=== PATIENT | male | born 1945 | race Caucasian/White ===

== ENCOUNTER 2017-09-03 12:41 | Outpatient (CLI) | payer MEDICARE ==
--- NOTE | 2017-09-03 14:36 | RAD ---
CHEST TWO VIEWS: History: Pre op. Comparison: 08-13-14 FINDINGS: Cardiac silhouette and pulmonary vasculature are unremarkable. Mediastinum is midline with aortic stephan cification. There is no confluent airspace consolidation, pneumothorax, or pleural fluid. IMPRESSION: 1. Atherosclerosis. POS: [facility]
[2017-09-03 14:51] LABS: PTT 30.2 SEC (22.9-36.1); Prothrombin Time 13.1 SEC (12.0-14.7)
[2017-09-03 14:55] LABS: Bilirubin Negative (Negative); Blood, Urine Negative (Negative); Clarity CLEAR (Clear); Glucose, Urine (Dipstick) Negative (Negative); Leukocyte Negative (Negative); Nitrite Negative (Negative); Protein, Urine (Dipstick) Negative (Neg-Trace); Specific Gravity, Urine 1.013 (1.002-1.036); Urobilinogen 0.2 mg/dL (0.2-1.0)
[2017-09-03 15:05] LABS: Bacteria/HPF None Seen HPF (None Seen); Hyaline Casts/LPF 0-3 HYALINE CAST LPF (0-3 Hyaline); Squamous Epithelial None Seen HPF (0-3); WBC/HPF None Seen HPF (0-3)
[2017-09-03 15:11] LABS: Anion Gap 14 mmol/L (10-20); BUN (Urea Nitrogen) 11 mg/dL (8.4-25.7); Calc. Creatinine Clearance 0 mL/min (70-130); Calcium 9.9 mg/dL (7.8-10.44); Carbon Dioxide 28 mmol/L (23-31); Chloride 100 mmol/L (98-107); Estimated GFR-MDRD Greater than 90; Glucose 95 mg/dL (80-115); Potassium 4.2 mmol/L (3.5-5.1); Sodium 138 mmol/L (136-145)
[2017-09-03 15:14] LABS: Band 3 % (5-11); Eosinophils 1 % (0-10); Lymphocytes 32 % (21-51); MDiff Complete? YES; Mean Corpuscular Hemoglobin 34.3 pg (27.0-31.0); Mean Platelet Volume 8.3 fL (7.4-10.4); Monocytes 5 % (0-10); Neutrophil 57 % (42-75); PLT Morphology Comment Appears Adequate; Platelet Count 226 thou/uL (130-400); RBC Distribution Width 12.3 % (11.5-14.5); Reactive Lymphocytes 1 % (0-10); Red Blood Cell (RBC) Count 4.37 mill/uL (4.70-6.10); White Blood Cell (WBC) Count 5.6 thou/uL (4.8-10.8)
--- NOTE | 2017-09-27 16:37 | EKG ---
Test Reason : Blood Pressure : / mmHG Vent. Rate : 079 BPM Atrial Rate : 079 BPM P-R Int : 166 ms QRS Dur : 086 ms QT Int : 394 ms P-R-T Axes : 055 -25 053 degrees QTc Int : 451 ms Normal sinus rhythm Low voltage QRS Cannot rule out Anterior infarct (cited on or before 13-AUG-2014) Abnormal ECG When compared with ECG of 13-AUG-2014 15:26, No significant change was found Confirmed by DR. Kvng SOW ([id number]) on 09/27/2017 4:37:12 PM Referred By: SOLA Confirmed By:DR. Kvng SOW
== END 2017-09-03 12:42 | disposition home or self-care (01) ==
LOC: LABBT 12:41
PROVIDERS: ATTEND Orthopaedic Surgery
DX: Z01.818 Encounter for other preprocedural examination (principal); M17.12 Unilateral primary osteoarthritis, left knee
CPT/HCPCS: 71046; 80048; 81001; 85025; 85610; 85730; 86850; 86900; 86901; 87081; 93005; 93010

== ENCOUNTER 2017-09-17 09:42 | Day surgery (SDC) | payer MEDICARE ==
[2017-09-03 12:59] VITALS: BMI 33.7
[2017-09-17] MEDS ORDERED: CEFAZOLIN/Water 2 GM/20 ML SYRINGE ONE (10:07)
[2017-09-17] MEDS ORDERED: Tranexamic Acid 1,000 MG/100 ML BAG ONE ×2 (10:07→13:02)
[2017-09-17] MEDS ORDERED: Fentanyl 100 MCG/2 ML VIAL ONE ×4 (10:08→13:46)
[2017-09-17] MEDS ORDERED: Midazolam HCl 2 mg/2 ml Vial ONE (10:08)
[2017-09-17] MEDS ORDERED: Ropivacaine 0.2% HCl/PF 20 ML ONE (10:08)
[2017-09-17] MEDS ORDERED: Vancomycin HCl 1.5 GM in Sodium Chloride 0.9% 250 ML 300 ML IVPB SCH (10:15)
[2017-09-17] MEDS ORDERED: Acetaminophen 325 MG TAB PO PRN (11:15)
[2017-09-17] MEDS ORDERED: diphenhydrAMINE 25 MG CAP PO PRN (11:15)
[2017-09-17] MEDS ORDERED: HYDROcodone/Acetaminophen 10/325 mg Tablet PO PRN ×3 (11:15→11:17)
[2017-09-17] MEDS ORDERED: traMADol HCl 50 MG TAB PO PRN ×3 (11:15→11:18)
[2017-09-17] MEDS ORDERED: Ondansetron HCl/PF 4 MG/2 ML Vial IVP PRN ×3 (11:15→11:57)
[2017-09-17] MEDS ORDERED: Zolpidem Tartrate 5 MG TAB PO PRN ×2 (11:15→11:17)
[2017-09-17] MEDS ORDERED: Tranexamic Acid 1,000 MG in Sodium Chloride 0.9% 100 ML IVPB SCH (11:15)
[2017-09-17] MEDS ORDERED: Fentanyl 100 MCG/2 ML VIAL SLOW IVP PRN ×2 (11:15)
[2017-09-17] MEDS ORDERED: Promethazine HCl 25 MG/ML VIAL IM PRN ×3 (11:15→11:57)
[2017-09-17] MEDS ORDERED: Ropivacaine 0.2% 550 ML 550 ML NERVE BLCK SCH (11:17)
[2017-09-17] MEDS ORDERED: Fentanyl 100 MCG/2 ML VIAL IV PRN (11:18)
[2017-09-17] MEDS ORDERED: Promethazine HCl 25 MG/ML VIAL SLOW IVP PRN (11:57)
[2017-09-17] MEDS ORDERED: Ropivacaine 0.5% HCl/PF (150 MG/30 ML VIAL) ONE (12:28)
[2017-09-17] MEDS ORDERED: Propofol 200 MG/20 ML VIAL ONE (12:40)
[2017-09-17] MEDS ORDERED: Ondansetron HCl/PF 4 MG/2 ML Vial ONE (12:40)
[2017-09-17] MEDS ORDERED: CEFAZOLIN 1 GM VIAL ONE (12:40)
[2017-09-17] MEDS ORDERED: Sterile Water 10 ML VIAL ONE (12:40)
[2017-09-17] MEDS ORDERED: Ketorolac Tromethamine 30 MG/ML VIAL ONE (12:40)
--- NOTE | 2017-09-17 13:27 | OP ---
PREOPERATIVE DIAGNOSIS: Degenerative joint disease, left knee. POSTOPERATIVE DIAGNOSIS: Degenerative joint disease, left knee. SURGEON: Scot Juárez M.D. ACCOUNTS RECEIVABLE ACCOUNTANT: Balwinder Parr PA-C. BLOOD LOSS: Minimal. SPECIMEN: None. DRAINS: None. COMPLICATIONS: None. TOURNIQUET TIME: 52 minutes. IMPLANTS USED: Elie Triathlon 5 femur, 4 tibia, 11 mm CSX3 polyethylene, and A32 patella. PROCEDURE IN DETAIL: After informed consent was obtained in the preoperative holding area. The fracisco ent was taken to the operative suite where general anesthesia was induced. Once adequate level of ge neral anesthesia was obtained, the patient was positioned and a well-padded tourniquet was placed lavonne und the left proximal thigh. The left lower extremity was then prepped and draped in the usual steri le fashion. Prior to exsanguination, a time out was called and all members of the surgical team agre ed upon site, surgeon, and patient. The extremity was then exsanguinated and the tourniquet was rais ed. A midline longitudinal incision was then made directly over the patella extending two fingerbrea dths above the superior pole of the patella and two fingerbreadths inferior to the inferior patellar pole of the patella. Deeper subcutaneous layers were dissected sharply and local bleeding was contro lled with Bovie electrocautery. A quad tendon longitudinal split was then made sharply and a median parapatellar arthrotomy was carried out both sharp and with Bovie electrocautery, carried down to one fingerbreadth medial to the tibial tubercle. The knee was then placed into flexion and the patella was everted nicely, and a copious fat pad ectomy was performed allowing for greater exposure of the t ibia. The computer-assisted distal femoral fiducial was then placed and pinned firmly, and the dista l femoral cutting guide was pinned firmly into place. The oscillating saw was then used to remove th e appropriate amount of bone. The 4-in-1 cutting block was then placed on the distal femur and the o scillating saw was used to remove the appropriate amount of bone off of the anterior, posterior, and chamfer cuts. After completion of bone cuts, the anterior cruciate ligament was resected sharply and the posterior cruciate ligament retractor was placed and the tibia was subluxed for better exposure. Partial meniscectomies were carried out, and the tibial computer-assisted fiducial was pinned, and the cutting guide was placed. Oscillating saw was then used to remove the bone with Hohmann retracto rs used to take care and protect the collateral ligaments. After the tibial resection was performed, a laminar senior technical project manager was placed in between the freshened bone cuts. The knee placed at 90 degrees and further bilateral meniscectomies were carried out, and the curved osteotome and curettage was used t o remove any excess bone spurs in the posterior compartment. Exparel was then injected into the post erior capsule, swathi-articular synovia, pre-patella synovia, and musculature surrounding the capsule. The trial femoral component, tibial baseplate were placed with the appropriate polyethylene trial in sert with an appropriate polyethylene spacer and patellar button. The knee was taken through full ra nge of motion with flexion and extension from 0-90 degrees and patellar broach squarely in the trochl ea without any squinting or subluxation noted. The knee was also stable to varus and valgus stressin g at 0, 15, 45, and 90 degrees of flexion. The drawer was negative. All trial components were then removed and the keel punch was used to provide the appropriate defect in the tibia with a mallet. Th e freshened bone cuts were copiously irrigated with pulsatile lavage of about 1-1/2 liters to remove all excess debris. The freshened bone cuts were then dried and with suction and lap sponge. The kne e was placed in flexion and retractors were placed to provide access to all bone cuts. Tobramycin im pregnated methyl methacrylate cement was then placed on the freshened bone cuts and implants which we re malleted firmly into place. Curettage and [place] elevators were used to remove any excess bone derek ent. The knee was placed into full extension and the patellar button was placed under compression, a nd the cement was allowed to cure. Once completed, the components were again taken through full rang e of motion and copious irrigation of the knee was carried out with another liter of normal saline. All components were inspected fully with full range of motion and varus and valgus stressing. There w as no laxity noted and full extension was observed clinically. Primary closure was accomplished with #2 interrupted Vicryl stitch of the arthrotomy defect. This was oversewn with a #2 running Quill ba rbed stitch. The gravitational platelet system was then injected into the arthrotomy prior to closur e. The subcutaneous layer was then closed with a running 0 barbed Monocryl stitch and skin closure a ccomplished with a running subcuticular 3-0 Monocryl barbed Quill stitch and augmented with cement on the skin. Tourniquet was lowered. Good spontaneous return of distal pulses was noted clinically an d a sterile dressing was applied to the incision. The procedure was terminated without any complicat ions. The patient was awakened in the operative suite and the tourniquet was removed, and the patien t was taken to the recovery room in stable condition.
[2017-09-17] MEDS ORDERED: Promethazine HCl 25 MG/ML VIAL ONE (13:35)
--- NOTE | 2017-09-17 13:47 | RAD ---
TWO VIEWS LEFT KNEE: Date: 09-17-17 History: Status post total knee arthroplasty. FINDINGS: Tibial and femoral components are present, evidence of recent knee arthroplasty. There is post-operat ricky gas within the suprapatellar bursa. There is posterior patellar post-operative changes. No acute fracture or dislocation. No evidence for hardware failure. IMPRESSION: Findings consistent with recent left total knee arthroplasty. POS: [facility]
[2017-09-17] MEDS: Dextrose 5 %-0.45 % NaCl 1,000 ML IV SCH ×2 (14:59→20:58)
[2017-09-17] MEDS: Ketorolac Tromethamine 30 MG/ML VIAL IVP SCH ×5 (15:00→23:11)
[2017-09-17] MEDS: CEFAZOLIN/Water 2 GM/20 ML SYRINGE SLOW IVP SCH ×2 (15:01→21:10)
[2017-09-17] MEDS: Aspirin 81 mg Enteric Coated Tablet PO SCH (20:57)
[2017-09-17] MEDS: Calcium Carbonate + Vit D 1 TAB PO SCH (20:58)
[2017-09-17] MEDS ORDERED: Allopurinol 300 MG TAB PO SCH (21:00)
[2017-09-17] MEDS ORDERED: Atorvastatin Calcium 10 MG TAB PO SCH (21:00)
[2017-09-17] MEDS ORDERED: Aspirin 325 MG TAB PO SCH (21:00)
[2017-09-17] MEDS: HYDROcodone/Acetaminophen 10/325 mg Tablet PO PRN (21:02)
--- NOTE | 2017-09-18 00:09 | CON ---
DATE OF CONSULTATION: 09/17/2017 ORTHOPEDIST: Scot Juárez M.D. PRIMARY CARE PHYSICIAN: Easton Del Real M.D. REASON FOR CONSULTATION: Medical management of the patient's chronic hypertension, hypothyroidism, B arrett's esophagitis. HISTORY OF PRESENT ILLNESS: This is a 71-year-old male with a known history of gout, gastroesophagea l disease and Jacobs's esophagus, hypertension, hypothyroidism who presented initially to the [facility] for a left total knee arthroplasty. He is currently being seen status post procedure for which he has tolerated well. At the time of my evaluation, the patient himself has no overt complaints. REVIEW OF SYSTEMS: As per HPI, includes the following: General: No fevers, no chills. HEENT: No dizziness, no new headaches, no new vision changes. Cardiovascular: No chest pain, no chest pressur e, no left-sided arm numbness or tingling. No nausea, no diaphoresis. Respiratory: No shortness of breath, no new cough. No recent upper respiratory illness, no sinus congestion, no ear pain. Gastr ointestinal: Denies any new cough. Denies any throat discomfort. Denies any sensation of chest bur mik or reflux disease. Denies any nausea, vomiting, abdominal pain, diarrhea or constipation. Letha tourinary: Denies any dysuria. Denies any change in urine quality or quantity. Musculoskeletal: D enies any new arthralgias or myalgias other than pain that is swathi-surgically related to the left low er extremity at this point in time. The remainder of the review of systems otherwise negative. PAST MEDICAL HISTORY: As per above, significant for gout, gastroesophageal reflux disease, hypertens ion, hypothyroidism, prior diagnosis of Jacobs's esophagus, status post history of hernia repair. FAMILY HISTORY: Significant for cardiovascular disease in his mother. ALLERGIES: No known drug allergies. HOME MEDICATIONS: Please see the EMR for full details. The patient denies any change to his medicat ion regimen in the last month. SOCIAL HISTORY: The patient is , lives with his . Prior smoker, quit approximately 17 ye ars ago. Intermittent alcohol use. PHYSICAL EXAMINATION: VITAL SIGNS: Temperature of 98.2, pulse of 76, respirations 18, satting 96% on room air, blood press ure of 126/90. GENERAL: The patient is awake, alert, appropriate and reasonable historian with a normal affect. HEENT: Moist mucous membranes. Equal ocular motions are intact. Reasonable dentition. Clear oroph arynx. CARDIOVASCULAR: S1, S2. No murmurs, rubs or gallops. Pulses 2+ bilateral upper extremity, no pitti ng pedal edema. RESPIRATORY: Reasonable air movement. Clear to auscultation bilaterally. No wheezes, rales or rhon chi. ABDOMEN: Positive bowel sounds, soft, nontender to palpation. No hepatosplenomegaly noted. LABORATORY DATA AND IMAGING: Currently no postoperative labs are available. ASSESSMENT AND PLAN: A 71-year-old male who is currently status post left total knee arthroplasty. 1. Status post left knee total arthroplasty. Management as per orthopedic surgeon. 2. Hypertension, appears to be stable. Resume home medications. We will recommend following up wit h a BMP in the morning to assure no renal dysfunction prior to reinitiation of Avapro. 3. Hypothyroidism. Continue the patient on his home medications and clinical symptoms of dysthymic disorder. 4. Gastroesophageal reflux disease with a known history of Jacobs's esophagus. Closely monitor p.o . intake and any symptoms of reflux. 5. Gout. Continue the patient on his home regimen. Thank you for asking me to care for the patient and we will follow along consultation.
[2017-09-18] MEDS: Dextrose 5 %-0.45 % NaCl 1,000 ML IV SCH (00:29)
[2017-09-18] MEDS: HYDROcodone/Acetaminophen 10/325 mg Tablet PO PRN ×3 (03:41→13:43)
[2017-09-18 05:48] LABS: Hemoglobin 12.4 g/dL (14.0-18.0); Mean Corpuscular Hemoglobin 33.5 pg (27.0-31.0); Mean Platelet Volume 8.1 fL (7.4-10.4); Platelet Count 303 thou/uL (130-400); RBC Distribution Width 12.3 % (11.5-14.5); Red Blood Cell (RBC) Count 3.71 mill/uL (4.70-6.10); White Blood Cell (WBC) Count 8.5 thou/uL (4.8-10.8)
[2017-09-18 05:57] LABS: Anion Gap 12 mmol/L (10-20); BUN (Urea Nitrogen) 16 mg/dL (8.4-25.7); Calc. Creatinine Clearance 126 mL/min (70-130); Calcium 8.7 mg/dL (7.8-10.44); Carbon Dioxide 25 mmol/L (23-31); Chloride 103 mmol/L (98-107); Estimated GFR-MDRD Greater than 90; Glucose 101 mg/dL (80-115); Potassium 4.1 mmol/L (3.5-5.1); Sodium 136 mmol/L (136-145)
[2017-09-18] MEDS ORDERED: Levothyroxine Sodium 75 MCG TAB PO SCH (06:00)
[2017-09-18] MEDS: Ketorolac Tromethamine 30 MG/ML VIAL IVP SCH ×2 (06:18→13:45)
[2017-09-18] MEDS ORDERED: Ferrous Gluconate 324 MG TAB PO SCH (09:00)
[2017-09-18] MEDS ORDERED: Aspirin 81 mg Enteric Coated Tablet PO SCH (09:00)
[2017-09-18] MEDS ORDERED: Metamucil PACK PO SCH (09:00)
[2017-09-18] MEDS ORDERED: Senokot S 8.6-50 MG TAB PO SCH (09:00)
[2017-09-18] MEDS ORDERED: Multivitamin W/ Minerals 1 TAB PO SCH ×2 (09:00)
[2017-09-18] MEDS: Calcium Carbonate + Vit D 1 TAB PO SCH (09:07)
[2017-09-18] MEDS: Aspirin 81 mg Enteric Coated Tablet PO SCH (09:08)
[2017-09-18 09:10] VITALS: BP 101/64; TEMP 97.5
== END 2017-09-18 16:07 | disposition home or self-care (01) ==
LOC: SDC 09:42 → SURG B 11:15 → SDC 09-18 16:07
PROVIDERS: ATTEND Physician Assistant Surgical
PROC: 0SRD0J9 Replacement of Left Knee Joint with Synthetic Substitute, Cemented, Open Approach (ICD-10-PCS; principal; 2017-09-17)
PROC: 8E0YXBZ Computer Assisted Procedure of Lower Extremity (ICD-10-PCS; 2017-09-17)
DX: M17.0 Bilateral primary osteoarthritis of knee (principal); I10 Essential (primary) hypertension; E03.9 Hypothyroidism, unspecified; K22.70 Barrett's esophagus without dysplasia; M10.9 Gout, unspecified; K21.9 Gastro-esophageal reflux disease without esophagitis; E78.5 Hyperlipidemia, unspecified; Z87.891 Personal history of nicotine dependence; Z79.82 Long term (current) use of aspirin; Z79.52 Long term (current) use of systemic steroids; Z79.899 Other long term (current) drug therapy; Z80.9 Family history of malignant neoplasm, unspecified; Z98.890 Other specified postprocedural states
CPT/HCPCS: 20985; 27447; 73560; 80048; 85027; 86850; 86900; 86901; 97116 ×2; 97139 ×2; 97150; 97530; A4306; C1713; C1776; G8978; G8979; 36415; A4216; J0690; J1885; J2250; J2405; J2550; J2704; J2795; J3010; J3370; J7050

== ENCOUNTER 2018-09-01 06:18 | Outpatient (CLI) | payer MEDICARE ==
[2018-09-01 09:58] LABS: #Basophils 0.1 thou/uL (0.0-0.2); #Eosinphils 0.5 thou/uL (0.0-0.7); #Lymphocytes 1.9 thou/uL (1.20-3.40); #Monocytes 0.8 thou/uL (0.11-0.59); #Neutrophils 4.7 thou/uL (1.40-6.50); %Eosinophils 6.6 % (0.0-10.0); %Lymphocytes 23.9 % (21.0-51.0); %Neutrophils 58.6 % (42.0-75.0); Hemoglobin 14.2 g/dL (14.0-18.0); Platelet Count 275 thou/uL (130-400); RBC Distribution Width 12.2 % (11.5-14.5); Red Blood Cell (RBC) Count 4.17 mill/uL (4.70-6.10); White Blood Cell (WBC) Count 8.1 thou/uL (4.8-10.8)
[2018-09-01 10:09] LABS: INR-International Normal Ratio 1.1; Prothrombin Time 13.8 SEC (12.0-14.7)
[2018-09-01 10:10] LABS: PTT 28.5 SEC (22.9-36.1)
[2018-09-01 10:25] LABS: Anion Gap 13 mmol/L (10-20); BUN (Urea Nitrogen) 14 mg/dL (8.4-25.7); Calc. Creatinine Clearance 0 mL/min (70-130); Calcium 9.5 mg/dL (7.8-10.44); Carbon Dioxide 25 mmol/L (23-31); Chloride 105 mmol/L (98-107); Estimated GFR-MDRD 90; Glucose 103 mg/dL (83-110); Potassium 3.9 mmol/L (3.5-5.1); Sodium 139 mmol/L (136-145)
--- NOTE | 2018-09-01 17:09 | EKG ---
Test Reason : Blood Pressure : / mmHG Vent. Rate : 062 BPM Atrial Rate : 062 BPM P-R Int : 174 ms QRS Dur : 084 ms QT Int : 436 ms P-R-T Axes : 065 005 045 degrees QTc Int : 442 ms Normal sinus rhythm Low voltage QRS Borderline ECG Confirmed by DR. Jennifer FIELDS ([id number]) on 09/01/2018 5:09:15 PM Referred By: SOLA Confirmed By:DR. Jennifer FIELDS
== END 2018-09-01 06:19 | disposition home or self-care (01) ==
LOC: LABBT 06:18
PROVIDERS: ATTEND Orthopaedic Surgery
DX: Z01.818 Encounter for other preprocedural examination (principal); M17.11 Unilateral primary osteoarthritis, right knee
CPT/HCPCS: 80048; 85025; 85610; 85730; 87081; 93005; 93010

== ENCOUNTER 2018-09-09 07:48 | Day surgery (SDC) | payer MEDICARE ==
[2018-09-09] MEDS ORDERED: Vancomycin HCl 1.5 GM in Sodium Chloride 0.9% 250 ML 300 ML IVPB SCH (09:15)
[2018-09-09] MEDS ORDERED: CEFAZOLIN 2 GM/50 ML BAG ONE (09:21)
[2018-09-09] MEDS ORDERED: Tranexamic Acid 1,000 MG/10 ML VIAL ONE ×2 (09:21→12:48)
[2018-09-09] MEDS ORDERED: Sodium Chloride 0.9% 100 ML ONE (09:21)
[2018-09-09] MEDS ORDERED: Fentanyl 100 MCG/2 ML VIAL ONE ×3 (09:43→13:02)
[2018-09-09] MEDS ORDERED: Midazolam HCl 2 mg/2 ml Vial ONE (09:43)
[2018-09-09] MEDS ORDERED: Zolpidem Tartrate 5 MG TAB PO PRN ×2 (10:19→10:51)
[2018-09-09] MEDS ORDERED: Promethazine HCl 25 MG/ML VIAL IM PRN ×3 (10:19→12:39)
[2018-09-09] MEDS ORDERED: Ondansetron PF 4 MG/2 ML Vial IVP PRN ×2 (10:19→10:51)
[2018-09-09] MEDS ORDERED: traMADol HCl 50 MG TAB PO PRN (10:19)
[2018-09-09] MEDS ORDERED: Ropivacaine HCl/PF 250 ML in Premix Bag 1 BAG NERVE BLCK SCH (10:19)
[2018-09-09] MEDS ORDERED: Fentanyl 100 MCG/2 ML VIAL IV PRN (10:20)
[2018-09-09] MEDS ORDERED: Acetaminophen 325 MG TAB PO PRN (10:51)
[2018-09-09] MEDS ORDERED: diphenhydrAMINE 25 MG CAP PO PRN (10:51)
[2018-09-09] MEDS ORDERED: HYDROcodone/Acetaminophen 10/325 mg Tablet PO PRN ×2 (10:51)
[2018-09-09] MEDS ORDERED: CEFAZOLIN/Water 2 GM/20 ML SYRINGE SLOW IVP SCH (11:00)
[2018-09-09] MEDS ORDERED: Ondansetron HCl/PF 4 MG/2 ML Vial IVP PRN (12:39)
[2018-09-09] MEDS ORDERED: Promethazine HCl 25 MG/ML VIAL SLOW IVP PRN (12:39)
[2018-09-09] MEDS ORDERED: HYDROmorphone 2 MG/ML VIAL SLOW IVP PRN (12:39)
[2018-09-09] MEDS ORDERED: PACU-Morphine 4MG/ML VIAL SLOW IVP PRN (12:39)
[2018-09-09] MEDS ORDERED: Ropivacaine 0.5% HCl/PF (150 MG/30 ML VIAL) ONE (13:41)
[2018-09-09] MEDS ORDERED: Bupivacaine 0.25% HCL 30 ML VIAL ONE (13:41)
[2018-09-09] MEDS ORDERED: PROPOFOL 200 MG/20 ML VIAL ONE (14:01)
[2018-09-09] MEDS ORDERED: Ketorolac Tromethamine 30 MG/ML VIAL ONE (14:01)
[2018-09-09] MEDS ORDERED: Ondansetron PF 4 MG/2 ML Vial ONE (14:01)
[2018-09-09] MEDS ORDERED: PHENYLEPHRINE-NS 100 MCG/ML 10 ML SYRINGE ONE (14:01)
[2018-09-09] MEDS ORDERED: Lidocaine 1% PF 5 ML VIAL ONE (14:01)
[2018-09-09] MEDS ORDERED: ePHEDrine/0.9% NaCl/PF SYRINGE 50 mg/10 ml ONE (14:01)
[2018-09-09] MEDS ORDERED: Dexamethasone 20 MG/5 ML VIAL ONE (14:01)
--- NOTE | 2018-09-09 14:58 | RAD ---
RIGHT KNEE TWO VIEWS: INDICATIONS: Total knee replacement. COMPARISON: None. FINDINGS: There is a right total knee prosthesis that projects in the expected position. There is scattered in traarticular and periarticular soft tissue gas, consistent with the patient's recent postop state. N o definite complications evident. IMPRESSION: Right total knee prosthesis. POS: [facility]
[2018-09-09] MEDS: Sodium Chloride 0.9% 1,000 ML IV SCH (16:09)
[2018-09-09] MEDS: Ketorolac Tromethamine 30 MG/ML VIAL IVP SCH ×2 (16:10→18:40)
[2018-09-09 17:03] VITALS: BMI 34.4
[2018-09-09] MEDS: CEFAZOLIN 2 GM/50 ML-DEXTROSE 2 GM in Premix Bag 1 BAG IVPB SCH (18:41)
[2018-09-09] MEDS: traMADol HCl 50 MG TAB PO PRN (21:45)
[2018-09-09] MEDS: Aspirin 81 mg Enteric Coated Tablet PO SCH (21:46)
[2018-09-09] MEDS: Senokot S 8.6-50 MG TAB PO SCH (21:47)
[2018-09-09] MEDS: Allopurinol 300 MG TAB PO SCH (21:48)
[2018-09-09] MEDS: Ferrous Gluconate 324 MG TAB PO SCH (21:48)
[2018-09-09] MEDS: Atorvastatin Calcium 10 MG TAB PO SCH (21:48)
[2018-09-09] MEDS: Calcium Carbonate + Vit D 1 TAB PO SCH (21:49)
--- NOTE | 2018-09-10 00:34 | CON ---
DATE OF CONSULTATION: 09/09/2018 PRIMARY CARE PHYSICIAN: Easton Del Real MD. PRIMARY TEAM ORTHOPEDICS: Scot Juárez MD REASON FOR CONSULTATION: Medical management. HISTORY OF PRESENT ILLNESS: This is a 72-year-old white male with severe osteoarthritis of the right knee, here for elective right total knee arthroplasty. The patient had the procedure earlier today and has been doing well postoperatively without any complaints. PAST MEDICAL HISTORY: 1. Hypertension. 2. Gout. 3. Hyperlipidemia. 4. Hypothyroidism. 5. Remote history of Jacobs's esophagitis. PREVIOUS SURGICAL HISTORY: 1. Right inguinal hernia repair. 2. Left knee total arthroplasty, last year. SOCIAL HISTORY: The patient is , lives with his . They are down here in [place] during the winter months and [place] during the rest of the year. He used to smoke, quit cigarettes 25 years ago. He drinks 6 beers per day. Has never had any problems with withdrawal if he has to stop for few days. FAMILY HISTORY: Brother had testicular cancer as a young man and of throat cancer a few years ago. Dad is still living in his 90s without any significant medical problems. Mother of stroke and had a previous CT. Maternal grandfather had history of CT as well. ALLERGIES: NO KNOWN DRUG ALLERGIES. CURRENT MEDICATIONS: 1. Allopurinol 300 mg at night. 2. Aspirin 81 mg daily. 3. Atorvastatin 10 mg each night. 4. Calcium 600 with vitamin D, 1 tablet twice a day. 5. Avapro 300 mg at night. 6. Levothyroxine 75 mcg daily. 7. Multivitamin daily. 8. Omeprazole 20 mg at night. 9. Metamucil 2 teaspoons daily. 10. Verapamil 240 mg at night. REVIEW OF SYSTEMS: CONSTITUTIONAL: No fevers, no chills. No weight changes. EYES: No double vision or blurred vision. ENT: No congestion, drainage or sore throat. CARDIOVASCULAR: No chest pain. No palpitations or racing heart. PULMONARY: No coughing, wheezing or shortness of breath. GASTROINTESTINAL: No abdominal pain. No nausea or vomiting. No diarrhea or constipation. GENITOURINARY: No dysuria or hematuria. MUSCULOSKELETAL: He had significant pain with ambulation in his right knee. He has some back pain and stiffness each morning that improves after he gets up and moves around. SKIN: He has not noticed any rashes or skin changes. NEUROLOGIC: He has had no numbness, tingling, or focal weakness. PHYSICAL EXAMINATION: VITAL SIGNS: Blood pressure 130/82, pulse 90, respirations 18, temperature 97.6. GENERAL: This is a well-developed, obese white male, in no acute distress. HEENT: Right eye has significantly thicker cataract than the left and is minimally more dilated. They are both round and reactive to light. Oropharynx clear without lesions, erythema, or exudate. NECK: Supple. No lymphadenopathy. No thyroid nodules or enlargement. No JVD. HEART: Regular rate and rhythm. No murmurs, rubs, or gallops. LUNGS: Clear to auscultation bilaterally. No wheezes, crackles, or rhonchi. ABDOMEN: Soft, nontender to palpation. Normoactive bowel sounds. No hepatosplenomegaly or other masses. EXTREMITIES: No clubbing, cyanosis, or edema. He does have a postop surgical dressing on his right knee with ice on it as well. SKIN: No rashes or lesions noted. NEUROLOGIC: He has intact strength and sensation of all extremities. No facial droop. LABORATORY DATA: Preoperatively done within the last week showed CBC, white blood cell count 8.1, hemoglobin 14.2, hematocrit 41.7. His MCV was elevated at 100. Platelet count 275. PT/INR was normal. Basic metabolic profile was within normal limits. ASSESSMENT: 1. Severe arthritis of the right knee status post total knee arthroplasty, doing well postoperatively, managed with Dr. Juárez. 2. Hypertension. Resume patient's home blood pressure medications. 3. Gout. Resume patient's home medications. 4. Hyperlipidemia. We will resume the patient's statin. 5. Hypothyroidism. Resume the patient's levothyroxine. 6. Gastrointestinal prophylaxis. Resume patient's Protonix. 7. Deep venous thrombosis prophylaxis. SCD to the left leg. 8. Code status. I did discuss with the patient. He is a full code. Should he be incapacitated, his would be his medical decision maker, her name is Celina Braun. Job ID: [id number]
--- NOTE | 2018-09-10 00:36 | CON ---
DATE OF CONSULTATION: Job ID: [id number]
[2018-09-10] MEDS: Ketorolac Tromethamine 30 MG/ML VIAL IVP SCH ×5 (00:56→23:33)
[2018-09-10] MEDS: CEFAZOLIN 2 GM/50 ML-DEXTROSE 2 GM in Premix Bag 1 BAG IVPB SCH (01:00)
[2018-09-10] MEDS: Levothyroxine Sodium 75 MCG TAB PO SCH (06:37)
[2018-09-10 06:42] LABS: Mean Corpuscular HGB CONC 33.8 g/dL (32.0-36.0); Mean Corpuscular Hemoglobin 34.1 pg (27.0-31.0); Mean Platelet Volume 7.8 fL (7.4-10.4); Platelet Count 237 thou/uL (130-400); Red Blood Cell (RBC) Count 3.52 mill/uL (4.70-6.10); White Blood Cell (WBC) Count 13.1 thou/uL (4.8-10.8)
[2018-09-10] MEDS: Sodium Chloride 0.9% 1,000 ML IV SCH ×3 (07:24→18:27)
--- NOTE | 2018-09-10 08:08 | PDOC.PN ---
- Subjective Encounter Start Date: 09/10/18 Encounter Start Time: 09:30 Subjective: Patient doing well with PT. No SOB/cough/Chest pain. - Objective MAR Reviewed: Yes Vital Signs & Weight: Vital Signs (12 hours) Temp Pulse Resp BP BP Pulse Ox 09/10/18 04:35 97.7 F 66 16 103/62 95 09/10/18 00:59 98.0 F 81 16 108/66 94 L 09/09/18 21:45 94 L 09/09/18 21:42 98.0 F 100 18 115/74 94 L Weight Weight 240 lb I&O: 09/09/18 09/10/18 09/11/18 06:59 06:59 06:59 Intake Total 480 Output Total 700 Balance -220 Result Diagrams: 09/10/18 06:24 Phys Exam - Physical Examination Constitutional: NAD HEENT: moist MMs Respiratory: no wheezing, no rales, no rhonchi Cardiovascular: RRR, no significant murmur Gastrointestinal: soft, positive bowel sounds right knee dressing with drop of blood at inferior end, otherwise c/d/i Neurological: non-focal, moves all 4 limbs Psychiatric: normal affect, A&O x 3 Dx/Plan (1) Status post right knee replacement Code(s): Z96.651 - PRESENCE OF RIGHT ARTIFICIAL KNEE JOINT Status: Acute (2) Hypertension Code(s): I10 - ESSENTIAL (PRIMARY) HYPERTENSION Status: Chronic Qualifiers: Hypertension type: essential hypertension Qualified Code(s): I10 - Essential (primary) hypertension Comment: low 100s this AM (3) Gout Code(s): M10.9 - GOUT, UNSPECIFIED Status: Chronic (4) Hyperlipidemia Code(s): E78.5 - HYPERLIPIDEMIA, UNSPECIFIED Status: Chronic Qualifiers: Hyperlipidemia type: unspecified Qualified Code(s): E78.5 - Hyperlipidemia , unspecified (5) Hypothyroidism Code(s): E03.9 - HYPOTHYROIDISM, UNSPECIFIED Status: Chronic Comment: on levothyroxine (6) Alcohol use Code(s): Z78.9 - OTHER SPECIFIED HEALTH STATUS Status: Chronic Comment: 6 beers/day, no evidence withdrawl symptoms at this point - Plan cont current plan of care, PT/OT, DVT proph w/SCDs * . - Discharge Day Encounter end time: 09:40
[2018-09-10] MEDS ORDERED: Aspirin 81 mg Enteric Coated Tablet PO SCH (09:00)
[2018-09-10] MEDS ORDERED: Non-Formulary Item 1 EACH (Multivitamin [Multi-Vitamin Daily] 1 TAB) PO SCH (09:00)
[2018-09-10] MEDS: Multivitamin W/ Minerals 1 TAB PO SCH (09:24)
[2018-09-10] MEDS: Ferrous Gluconate 324 MG TAB PO SCH ×2 (09:24→20:35)
[2018-09-10] MEDS: Metamucil PACK PO SCH (09:24)
[2018-09-10] MEDS: Calcium Carbonate + Vit D 1 TAB PO SCH ×2 (09:24→20:35)
[2018-09-10] MEDS: traMADol HCl 50 MG TAB PO PRN (09:25)
[2018-09-10] MEDS: Senokot S 8.6-50 MG TAB PO SCH ×2 (09:25→20:34)
[2018-09-10] MEDS: Aspirin 81 mg Enteric Coated Tablet PO SCH ×2 (09:26→20:35)
--- NOTE | 2018-09-10 09:35 | OP ---
DATE OF PROCEDURE: 09/09/2018 PREOPERATIVE DIAGNOSIS: Degenerative joint disease, right knee. POSTOPERATIVE DIAGNOSIS: Degenerative joint disease, right knee. PROCEDURE PERFORMED: Right total knee arthroplasty using a [place] triathlon 5 femur, 4 tibia, 11 mm CS X3 polyethylene, and a 32 patella. SURGEONS: Scot Juárez MD RESOURCE DEVELOPMENT MANAGER: Justo Gutierrez MD BLOOD LOSS: Minimal. SPECIMEN: None. DRAIN: None. COMPLICATION: None. PROCEDURE IN DETAIL: After informed consent was obtained in the preoperative holding area, the patient was taken to the operative suite where general anesthesia was induced. Once adequate level of general anesthesia was obtained, the patient was positioned and a well-padded tourniquet was placed around the right proximal thigh. The right lower extremity was then prepped and draped in the usual sterile fashion. Prior to exsanguination, a time-out was called and all members of the surgical team agreed upon site, surgeon, and patient. The extremity was then exsanguinated and the tourniquet was raised. A midline longitudinal incision was then made directly over the patella extending 2 fingerbreadths above the superior pole of the patella and 2 fingerbreadths inferior to the inferior patellar pole of the patella. Deeper subcutaneous layers were dissected sharply and local bleeding was controlled with Bovie electrocautery. A quad tendon longitudinal split was then made sharply and a median parapatellar arthrotomy was carried out both sharp and with Bovie electrocautery, carried down to 1 fingerbreadth medial to the tibial tubercle. The knee was then placed into flexion and the patella was everted nicely, and a copious fat pad ectomy was performed allowing for greater exposure of the tibia. The computer-assisted distal femoral fiducial was then placed and pinned firmly, and the distal femoral cutting guide was pinned firmly into place. The oscillating saw was then used to remove the appropriate amount of bone. The 4-in-1 cutting block was then placed on the distal femur and the oscillating saw was used to remove the appropriate amount of bone off the anterior, posterior, and chamfer cuts. After completion of bone cuts, the anterior cruciate ligament was resected sharply and the posterior cruciate ligament retractor was placed and the tibia was subluxed for better exposure. Partial meniscectomies were carried out, and the tibial computer-assisted fiducial was pinned, and the cutting guide was placed. Oscillating saw was then used to remove the bone, with Hohmann retractors used to take care and protect the collateral ligaments. After the tibial resection was performed, a laminar tacking stitch remover was placed in between the freshened bone cuts. The knee placed at 90 degrees and further bilateral meniscectomies were carried out, and the curved osteotome and curettage were used to remove any excess bone spurs in the posterior compartment. The trial femoral component and tibial baseplate were placed with the appropriate polyethylene trial insert with an appropriate polyethylene spacer and patellar button. The knee was taken through full range of motion with flexion and extension from 0 to 90 degrees and patellar broach squarely in the trochlea without any squinting or subluxation noted. The knee was also stable to varus and valgus stressing at 0, 15, 45, and 90 degrees of flexion. The drawer was negative. All trial components were then removed and the keel punch was used to provide the appropriate defect in the tibia with a mallet. The freshened bone cuts were copiously irrigated with pulsatile lavage of about 1.5 L to remove all excess debris. The freshened bone cuts were then dried with suction and lap sponge. The knee was placed in flexion and retractors were placed to provide access to all bone cuts. Tobramycin-impregnated methyl methacrylate cement was then placed on the freshened bone cuts and implants which were malleted firmly into place. Curettage and [place] elevators were used to remove any excess bone cement. The knee was placed into full extension and the patellar button was placed under compression, and the cement was allowed to cure. Once completed, the components were again taken through full range of motion and copious irrigation of the knee was carried out with another liter of normal saline. All components were inspected fully with full range of motion and varus and valgus stressing. There was no laxity noted and full extension was observed clinically. Primary closure was accomplished with #2 interrupted Vicryl stitch of the arthrotomy defect. This was oversewn with a #2 running Quill barbed stitch. The gravitational platelet system was then injected into the arthrotomy prior to closure. The subcutaneous layer was then closed with a running 0 barbed Monocryl stitch and skin closure accomplished with a running subcuticular 3-0 Monocryl barbed Quill stitch and augmented with cement on the skin. Tourniquet was lowered. Good spontaneous return of distal pulses was noted clinically and a sterile dressing was applied to the incision. The procedure was terminated without any complications. The patient was awakened in the operative suite and the patient was taken to the recovery room in stable condition. Job ID: [id number]
[2018-09-10] MEDS: HYDROcodone/Acetaminophen 7.5/325 mg Tablet PO PRN ×2 (13:34→23:37)
[2018-09-10] MEDS: Allopurinol 300 MG TAB PO SCH (20:35)
[2018-09-10] MEDS: Atorvastatin Calcium 10 MG TAB PO SCH (20:36)
[2018-09-11] MEDS: Sodium Chloride 0.9% 1,000 ML IV SCH ×2 (03:13→09:16)
[2018-09-11] MEDS: Levothyroxine Sodium 75 MCG TAB PO SCH (05:48)
[2018-09-11] MEDS: Ketorolac Tromethamine 30 MG/ML VIAL IVP SCH (05:48)
[2018-09-11] MEDS: HYDROcodone/Acetaminophen 7.5/325 mg Tablet PO PRN ×2 (05:53→10:12)
[2018-09-11 07:14] LABS: Hemoglobin 11.9 g/dL (14.0-18.0); Mean Corpuscular HGB CONC 33.5 g/dL (32.0-36.0); Mean Corpuscular Hemoglobin 34.4 pg (27.0-31.0); Mean Platelet Volume 8.1 fL (7.4-10.4); Platelet Count 233 thou/uL (130-400); RBC Distribution Width 12.1 % (11.5-14.5); Red Blood Cell (RBC) Count 3.46 mill/uL (4.70-6.10); White Blood Cell (WBC) Count 10.2 thou/uL (4.8-10.8)
[2018-09-11 07:48] VITALS: TEMP 97.5
--- NOTE | 2018-09-11 08:43 | PDOC.PN ---
- Subjective Encounter Start Date: 09/11/18 Encounter Start Time: 12:00 Subjective: Patient doing well with PT. A little more pain today. Trying to -: minimize the norco because it can make him constipated. - Objective MAR Reviewed: Yes Vital Signs & Weight: Vital Signs (12 hours) Temp Pulse Resp BP BP Pulse Ox 09/11/18 07:40 97.5 F L 61 16 109/81 94 L 09/11/18 04:25 97.6 F 62 20 108/65 95 09/11/18 00:37 97.7 F 76 18 124/75 94 L Weight Admit Weight 240 lb Weight 240 lb I&O: 09/10/18 09/11/18 09/12/18 06:59 06:59 06:59 Intake Total 480 Output Total 700 600 Balance -220 -600 Result Diagrams: 09/11/18 06:51 Phys Exam - Physical Examination Constitutional: NAD HEENT: moist MMs Respiratory: no wheezing, no rales, no rhonchi Cardiovascular: RRR, no significant murmur Gastrointestinal: soft, non-tender, positive bowel sounds Neurological: non-focal, moves all 4 limbs Psychiatric: normal affect, A&O x 3 Dx/Plan (1) Status post right knee replacement Code(s): Z96.651 - PRESENCE OF RIGHT ARTIFICIAL KNEE JOINT Status: Acute (2) Hypertension Code(s): I10 - ESSENTIAL (PRIMARY) HYPERTENSION Status: Chronic Qualifiers: Hypertension type: essential hypertension Qualified Code(s): I10 - Essential (primary) hypertension Comment: low 100s this AM (3) Gout Code(s): M10.9 - GOUT, UNSPECIFIED Status: Chronic (4) Hyperlipidemia Code(s): E78.5 - HYPERLIPIDEMIA, UNSPECIFIED Status: Chronic Qualifiers: Hyperlipidemia type: unspecified Qualified Code(s): E78.5 - Hyperlipidemia , unspecified (5) Hypothyroidism Code(s): E03.9 - HYPOTHYROIDISM, UNSPECIFIED Status: Chronic Comment: on levothyroxine (6) Alcohol use Code(s): Z78.9 - OTHER SPECIFIED HEALTH STATUS Status: Chronic Comment: 6 beers/day, no evidence withdrawl symptoms at this point - Plan cont current plan of care, PT/OT I belived ortho is planning on discharging him today. * . - Discharge Day Encounter end time: 12:10
[2018-09-11] MEDS: Metamucil PACK PO SCH (09:14)
[2018-09-11] MEDS: Ferrous Gluconate 324 MG TAB PO SCH (09:15)
[2018-09-11] MEDS: Aspirin 81 mg Enteric Coated Tablet PO SCH (09:15)
[2018-09-11] MEDS: Senokot S 8.6-50 MG TAB PO SCH (09:15)
[2018-09-11] MEDS: Calcium Carbonate + Vit D 1 TAB PO SCH (09:15)
[2018-09-11] MEDS: Multivitamin W/ Minerals 1 TAB PO SCH (09:15)
[2018-09-11 12:05] VITALS: BP 132/60
== END 2018-09-11 13:32 | disposition home or self-care (01) ==
LOC: SDC 07:48 → EDSTATUS 08:00 → SURG B 16:26 → SDC 09-11 13:32
PROVIDERS: ATTEND Orthopaedic Surgery
PROC: 0SRC0J9 Replacement of Right Knee Joint with Synthetic Substitute, Cemented, Open Approach (ICD-10-PCS; principal; 2018-09-09)
PROC: 8E0YXBZ Computer Assisted Procedure of Lower Extremity (ICD-10-PCS; 2018-09-09)
DX: M17.11 Unilateral primary osteoarthritis, right knee (principal); I10 Essential (primary) hypertension; M10.9 Gout, unspecified; E78.5 Hyperlipidemia, unspecified; E03.9 Hypothyroidism, unspecified; Z96.652 Presence of left artificial knee joint; Z87.891 Personal history of nicotine dependence; Z79.82 Long term (current) use of aspirin; Z79.899 Other long term (current) drug therapy; Z98.890 Other specified postprocedural states
CPT/HCPCS: 20985; 27447; 73560; 85027; 97116 ×2; 97139 ×4; 97150 ×2; 98961; C1713; C1776; 36415; J1100; J1885; J2001; J2250; J2405; J2704; J2795; J3010; J3370; J7050; S0020